=== PATIENT | female | born 1995 | race Caucasian/White ===

== ENCOUNTER 2024-11-19 11:33 | Emergency (ER) | payer MEDICAID ==
[~2024-11-19] VITALS: Ht 167.6 cm; Wt 74.0 kg
[2024-11-19 11:37] VITALS: BP 120/85; PULSE 84; RESP 18; TEMP 98.4; O2SAT 98
[2024-11-19] MEDS ORDERED: ACET-2708 MT (11:43)
[2024-11-19] MEDS ORDERED: LIDO700A15 TP (11:55)
[2024-11-19] MEDS: ACETAMINOPHEN 325MG TABLET PO ONE (12:05)
== END 2024-11-19 12:23 | disposition home or self-care (01) ==
LOC: ER 11:44
DX: M54.50 Low back pain, unspecified (principal)
CPT/HCPCS: 99283; A4565